=== PATIENT | female | born 1925 | race Caucasian/White ===

== ENCOUNTER → 2016-07-31 | Outpatient (CLI) | payer MEDICARE | END | disposition home or self-care (01) | LOC: PCVCCLINIC 13:00 | PROVIDERS: ATTEND Internal Medicine Cardiovascular Disease | DX: I10 Essential (primary) hypertension (principal); I25.811 Atherosclerosis of native coronary artery of transplanted heart without angina pectoris; E78.00 Pure hypercholesterolemia, unspecified; I38 Endocarditis, valve unspecified; D64.9 Anemia, unspecified; Z86.008 Personal history of in-situ neoplasm of other site; Z88.0 Allergy status to penicillin; Z79.82 Long term (current) use of aspirin; Z79.899 Other long term (current) drug therapy; Z90.79 Acquired absence of other genital organ(s) | CPT/HCPCS: 80061; 93005; G0463 ==